=== PATIENT | female | born 1935 | race Native Hawaiian/Other Pacific Islander ===

== ENCOUNTER 2019-01-21 06:49 | Outpatient (CLI) | payer OTHER ==
[2019-01-21 07:26] LABS: PLATELET COUNT 382 K/uL (152-353)
[2019-01-21 07:48] LABS: POTASSIUM 3.8 mmol/L (3.6-5.2)
== END 2019-01-21 23:01 | disposition home or self-care (01) ==
LOC: LAB 06:49
PROVIDERS: Nurse Practitioner
DX: R53.82 Chronic fatigue, unspecified (principal); E55.9 Vitamin D deficiency, unspecified; I10 Essential (primary) hypertension; E78.00 Pure hypercholesterolemia, unspecified; Z79.899 Other long term (current) drug therapy
CPT/HCPCS: 36415; 80053; 80061; 82306; 82607; 83036; 84443; 85027

== ENCOUNTER 2019-04-02 07:46 | Outpatient (CLI) | payer OTHER ==
[2019-04-02 08:25] LABS: PLATELET COUNT 391 K/uL (152-353)
[2019-04-02 08:30] LABS: POTASSIUM 3.9 mmol/L (3.6-5.2)
== END 2019-04-02 22:09 | disposition home or self-care (01) ==
LOC: US 07:46
PROVIDERS: Internal Medicine
DX: N18.3 Chronic kidney disease, stage 3 (moderate) (principal)
CPT/HCPCS: 36415; 80053; 81000; 82330; 82570; 83735; 83970; 84100; 84155; 85027

== ENCOUNTER 2019-05-03 07:57 | Outpatient (CLI) | payer OTHER ==
[2019-05-03 08:21] LABS: PLATELET COUNT 345 K/uL (152-353)
[2019-05-03 08:31] LABS: POTASSIUM 4.2 mmol/L (3.6-5.2)
== END 2019-05-03 20:20 | disposition home or self-care (01) ==
LOC: LABW 07:57
PROVIDERS: Internal Medicine
DX: N18.3 Chronic kidney disease, stage 3 (moderate) (principal)
CPT/HCPCS: 36415; 80053; 81000; 82330; 82570; 83735; 83970; 84100; 84155; 85027

== ENCOUNTER 2019-07-05 10:04 | Outpatient (CLI) | payer OTHER ==
[2019-07-05 10:33] LABS: PLATELET COUNT 359 K/uL (152-353)
[2019-07-05 10:43] LABS: POTASSIUM 4.1 mmol/L (3.6-5.2)
== END 2019-07-05 21:49 | disposition home or self-care (01) ==
LOC: LABW 10:04
PROVIDERS: Internal Medicine
DX: N18.3 Chronic kidney disease, stage 3 (moderate) (principal)
CPT/HCPCS: 36415; 80053; 81000; 82330; 83735; 83970; 84100; 84155; 85027

== ENCOUNTER 2019-07-09 08:53 | Outpatient (CLI) | payer OTHER | END 2019-07-09 19:27 | disposition home or self-care (01) | LOC: US 08:53 | DX: N18.3 Chronic kidney disease, stage 3 (moderate) (principal) ==